=== PATIENT | male | born 1960 | race Caucasian/White ===

== ENCOUNTER 2019-07-23 07:39 | Day surgery (SDC) | payer OTHER ==
[~2019-07-23] VITALS: Ht 203.2 cm; Wt 121.5 kg
[~2019-07-23 07:39] MED LIST: BENTYL10 MG PO; Buspirone HCl30 MG PO; CLON.5 PO; Docusate Sodiu1 EACH PO; KRILL OIL500 MG PO; LISI20 PO; MIRALAX119 GM PO; Omeprazole20 M1 PO; SERT50 PO; TRAZ100 PO; Vitamin D2000 UNIT PO; ZESTORETIC 20-121 EA
[2019-07-23] MEDS ORDERED: GINKGO BILOBA120 MG (08:20)
[2019-07-23] MEDS ORDERED: PANT20 (08:21)
== END 2019-07-23 09:55 | disposition home or self-care (01) ==
LOC: ORSCSDS 07:39
PROVIDERS: Internal Medicine Gastroenterology
PROC: 0DBN8ZX Excision of Sigmoid Colon, Via Natural or Artificial Opening Endoscopic, Diagnostic (ICD-10-PCS; principal; 2019-07-23 09:00)
PROC: 0D758ZZ Dilation of Esophagus, Via Natural or Artificial Opening Endoscopic (ICD-10-PCS; principal; 2019-07-23 09:00)
DX: R13.10 Dysphagia, unspecified (principal); Z12.11 Encounter for screening for malignant neoplasm of colon; Z86.010 Personal history of colon polyps; D12.5 Benign neoplasm of sigmoid colon; K57.30 Diverticulosis of large intestine without perforation or abscess without bleeding; K64.8 Other hemorrhoids; K22.2 Esophageal obstruction; I10 Essential (primary) hypertension; K21.9 Gastro-esophageal reflux disease without esophagitis; Z79.899 Other long term (current) drug therapy
CPT/HCPCS: 88305; J2250; J2704; J7120